=== PATIENT | male | born 1970 | race Caucasian/White ===

== ENCOUNTER 2023-11-06 19:46 | Inpatient (IN) | payer MEDICAID ==
[~2023-11-06] VITALS: Ht 185.4 cm; Wt 86.2 kg
[2023-11-06 20:09] VITALS: BP_SYST 126; PULSE 99; RESP 18; TEMP 96.5; O2SAT 97
[2023-11-06 20:31] LABS: BASOPHILS # (AUTO) 0.1 K/uL (0.0-0.2); BASOPHILS % (AUTO) 0.8 % (0.0-2.0); EOSINOPHILS # (AUTO) 0.1 K/uL (0.0-0.4); EOSINOPHILS % (AUTO) 1.2 % (0.0-4.0); HEMATOCRIT 43.7 % (36-54); HEMOGLOBIN 15.3 g/dL (14.0-18.0); LYMPHOCYTES # (AUTO) 2.8 K/uL (1.0-5.5); LYMPHOCYTES % (AUTO) 25.7 % (20.5-51.5); MEAN CORPUSCULAR HEMOGLOBIN 32 pg (27-31); MEAN CORPUSCULAR HGB CONC 35 % (32-36); MEAN CORPUSCULAR VOLUME 92 fL (79.0-98.0); MONOCYTES # (AUTO) 0.6 K/uL (0.0-1.0); MONOCYTES % (AUTO) 5.5 % (1.7-9.3); NEUTROPHILS # (AUTO) 7.2 K/uL (1.8-7.7); NEUTROPHILS % (AUTO) 66.8 % (40.0-70.0); PLATELET COUNT (AUTO) 401 K/uL (130-430); RED BLOOD CELL COUNT(AUTO) 4.73 MIL/uL (4.2-6.2); RED CELL DISTRIBUTION WIDTH 13.4 % (9.0-15.0); WHITE BLOOD COUNT (AUTO) 10.8 K/uL (4.8-10.8)
[2023-11-06 20:47] LABS: ANION GAP 10 (5-15); CALCIUM 9.8 mg/dL (8.4-11.0); CARBON DIOXIDE 25 mmol/L (23-29); CHLORIDE 104 mmol/L (98-107); CREATININE 0.74 mg/dL (0.55-1.30); GFR AFRICAN AMERICAN 142 mL/min (>90); GFR NON AFRICAN-AMERICAN 117 mL/min (>90); GLUCOSE 103 mg/dL (74-106); POTASSIUM 3.8 mmol/L (3.5-5.1); SALICYLATE 4 mg/dL (3-30); SODIUM SERUM 139 mmol/L (136-145); UREA NITROGEN, BLOOD 14 mg/dL (8-21)
[2023-11-06 20:48] LABS: ACETAMINOPHEN < 1 ug/mL (1-30); ALCOHOL, BLOOD < 3 mg/dL (<10)
[2023-11-07] MEDS ORDERED: LORazepam 2 MG/ML VIAL IVP PRN (11:30)
[2023-11-07] MEDS ORDERED: ACETAMINOPHEN 325 MG TABLET PO PRN (11:30)
[2023-11-07] MEDS ORDERED: ONDANSETRON HCL 4 MG/2 ML VIAL IVP PRN (11:30)
[2023-11-07] MEDS ORDERED: HYDROcodone/ACETAMIN 5-325 MG TAB (NORCO/ VICODIN) PO PRN (11:30)
[2023-11-07] MEDS ORDERED: MORPHINE 2 MG/ML INJ. SYRINGE IVP PRN (11:30)
[2023-11-07 16:00] VITALS: BP_SYST 103; PULSE 81; RESP 18; TEMP 97.6; O2SAT 97
[2023-11-07 16:47] VITALS: BP_SYST 103; PULSE 81; RESP 18; TEMP 97.6; O2SAT 98
[2023-11-07] MEDS ORDERED: HALOPERIDOL LACTATE 5 MG/ML VIAL ONE (18:14)
[2023-11-07] MEDS: LORazepam 2 MG/ML VIAL IM PRN (18:20)
[2023-11-07] MEDS: HALOPERIDOL LACTATE 5 MG/ML VIAL IM ONE (18:20)
[2023-11-07 20:00] VITALS: BP_SYST 131; PULSE 85; RESP 16; TEMP 96.9; O2SAT 97
[2023-11-08 08:00] VITALS: BP_SYST 125; PULSE 83; RESP 16; TEMP 98.4; O2SAT 100
[2023-11-08 20:03] VITALS: BP_SYST 102; PULSE 73; RESP 18; TEMP 98.8; O2SAT 97
[2023-11-09 07:31] LABS: BASOPHILS % (AUTO) 0.3 % (0.0-2.0); EOSINOPHILS # (AUTO) 0.1 K/uL (0.0-0.4); EOSINOPHILS % (AUTO) 1.3 % (0.0-4.0); HEMATOCRIT 42.1 % (36-54); HEMOGLOBIN 14.3 g/dL (14.0-18.0); LYMPHOCYTES # (AUTO) 1.8 K/uL (1.0-5.5); MEAN CORPUSCULAR HEMOGLOBIN 32 pg (27-31); MEAN CORPUSCULAR HGB CONC 34 % (32-36); MEAN CORPUSCULAR VOLUME 94 fL (79.0-98.0); MONOCYTES # (AUTO) 0.4 K/uL (0.0-1.0); MONOCYTES % (AUTO) 4.9 % (1.7-9.3); NEUTROPHILS # (AUTO) 6.8 K/uL (1.8-7.7); NEUTROPHILS % (AUTO) 73.5 % (40.0-70.0); PLATELET COUNT (AUTO) 388 K/uL (130-430); RED BLOOD CELL COUNT(AUTO) 4.49 MIL/uL (4.2-6.2); WHITE BLOOD COUNT (AUTO) 9.2 K/uL (4.8-10.8)
[2023-11-09 08:02] LABS: ALBUMIN 3.4 g/dL (3.4-4.8); CALCIUM 9.1 mg/dL (8.4-11.0); CREATININE 0.8 mg/dL (0.55-1.30); PHOSPHORUS 3.4 mg/dL (2.7-4.5); POTASSIUM 4.1 mmol/L (3.5-5.1); TOTAL BILIRUBIN 0.7 mg/dL (0.0-1.0)
[2023-11-09 08:05] VITALS: BP_SYST 115; PULSE 71; RESP 18; TEMP 97.5; O2SAT 99
[2023-11-09 12:35] VITALS: BP_SYST 118; PULSE 76; RESP 16; TEMP 98.3; O2SAT 98
[2023-11-09 15:52] VITALS: BP_SYST 115; PULSE 77; RESP 18; TEMP 98.6; O2SAT 99
== END 2023-11-09 16:00 | disposition home or self-care (01) | DRG 751 ==
LOC: SED 19:46 → SMU 11-07 11:18
PROVIDERS: ADMIT Student in an Organized Health Care Education/Training Program; ATTEND Student in an Organized Health Care Education/Training Program
DX: F29 Unspecified psychosis not due to a substance or known physiological condition (principal); R41.82 Altered mental status, unspecified; Z20.822 Contact with and (suspected) exposure to COVID-19; Z59.00 Homelessness unspecified
CPT/HCPCS: 36415; 80048; 80053; 83735; 84100; 85025; 99285; G0480; G0481; G0482; J1630; J2060